=== PATIENT | male | born 1975 | race Asian ===

== ENCOUNTER 2017-12-15 22:33 | Emergency (ER) | payer SELFPAY ==
[2017-12-16 01:10] LABS: ADD MAN DIFF? NO
[2017-12-16 01:11] LABS: WHITE BLOOD COUNT 10.2 10^3/ul (4.8-10.8)
[2017-12-16 01:12] LABS: BASOPHIL # 0.1 10^3/ul (0.0-0.1); BASOPHILS % 0.5 % (0.0-2.0); EOSINOPHILS # 0.4 10^3/ul (0.0-0.5); HEMATOCRIT 46.2 % (42.0-52.0); HEMOGLOBIN 15.7 g/dl (14.0-18.0); LYMPHOCYTES # 2.5 10^3/ul (0.8-2.9); LYMPHOCYTES % 24.5 % (15.0-51.0); MEAN CORPUSCULAR HEMOGLOBIN 29.6 pg (29.0-33.0); MEAN PLATELET VOLUME 9.8 fl (7.4-10.4); MONOCYTE # 0.8 10^3/ul (0.3-0.9); MONOCYTES % 7.4 % (0.0-11.0); NEUTROPHIL # 6.5 10^3/ul (1.6-7.5); NEUTROPHILS % 63.3 % (39.0-77.0); PLATELET COUNT 266 10^3/UL (140-415); RED BLOOD COUNT 5.31 10^6/ul (4.70-6.10); RED CELL DISTRIBUTION WIDTH 13.6 % (11.5-14.5)
[2017-12-16] MEDS: SOD CHLORIDE 0.9% 500 ML IV (01:32)
[2017-12-16] MEDS: LABETALOL HCL 20MG INJ IV (01:32)
[2017-12-16 01:49] LABS: ANION GAP 17 (8-16); BLOOD UREA NITROGEN 11 mg/dl (7-20); CARBON DIOXIDE 26 mmol/L (21-31); CHLORIDE 105 mmol/L (97-110); GLUCOSE 159 mg/dl (70-220); POTASSIUM 3.6 mmol/L (3.5-5.1); SODIUM 144 mmol/L (135-144)
[2017-12-16 01:57] LABS: B-TYPE NATRIURETIC PEPTIDE 52 PG/ML (0-125); TROPONIN-I < 0.010 ng/ml (0.000-0.120)
== END 2017-12-16 03:20 | disposition home or self-care (01) ==
LOC: E/R 22:33
DX: I10 Essential (primary) hypertension (principal)
CPT/HCPCS: 36415; 80048; 83880; 84484; 85025; 93005; 96374; 99284-25